=== PATIENT | male | born 1990 | race Caucasian/White ===

== ENCOUNTER 2017-02-08 16:35 | Observation (INO) | payer MEDICAID ==
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
[2017-02-08 16:54] LABS: % IMMATURE GRANULYOCYTES 1.2 % (0.0-1.1); ADD DIFF? NO; ADD MORPH? NO; ADD SCAN? NO; ATYPICAL LYMPHOCYTE FLAG 30 (0-99); FRAGMENT RBC FLAG 0 (0-99); HEMATOCRIT 44.6 % (40.0-51.0); HEMOGLOBIN 15.3 g/dL (13.7-17.5); LEFT SHIFT FLG 10 (0-99); LIPEMIA HEMOLYSIS FLAG 90 (0-99); MEAN CELL HEMOGLOBIN 29.9 pg (27.9-34.1); MEAN CELL HEMOGLOBIN CONCENTR. 34.3 g/dL (32.4-36.7); MEAN CELL VOLUME 87.3 fL (81.5-99.8); PLATELET CLUMPS FLAG 0 (0-99); PLATELET COUNT 238 10^3/uL (150-400); RED BLOOD CELL COUNT 5.11 10^6/uL (4.40-6.38); RED CELL DISTRIBUTION WIDTH 12.4 % (11.5-15.2)
[2017-02-08] MEDS ORDERED: IOPAMIDOL (ISOVUE-300) 100 ML BTL ONE (16:54)
[2017-02-08 17:06] LABS: INR 1.03 (0.83-1.16); PROTIME(PATIENT) 13.4 SEC (12.0-15.0)
[2017-02-08 17:07] LABS: APTT 24.3 SEC (23.0-38.0)
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
[2017-02-08 17:08] LABS: ANION GAP 14 mEq/L (8-16); CALCIUM 10.2 mg/dL (8.5-10.4); CARBON DIOXIDE 22 mEq/l (22-31); CHLORIDE 103 mEq/L (97-110); CREATININE 0.9 mg/dL (0.7-1.3); ETHANOL SERUM < 10 mg/dL (0-10); GLOMERULAR FILTRATION RATE > 60; GLUCOSE 103 mg/dL (70-100); SODIUM 139 mEq/L (134-144)
[2017-02-08] MEDS ORDERED: ONDANSETRON 4 MG/2 ML VIAL IVP PRN (17:21)
[2017-02-08] MEDS ORDERED: LR 1,000 ML IV SCH (17:30)
[2017-02-08] MEDS ORDERED: fentaNYL 100 MCG/2 ML INJ ONE ×2 (17:36→18:32)
[2017-02-08] MEDS ORDERED: fentaNYL 100 MCG/2 ML INJ IVP ONE ×2 (17:50→18:34)
[2017-02-08] MEDS: BACITRACIN ZINC 14.2 GM OINTTUBE TP SCH ×2 (19:31→21:32)
[2017-02-08] MEDS: OXYCODONE/APAP 5/325 TAB PO PRN (21:32)
[2017-02-08] MEDS: SENNOSIDES/DOCUSATE SODIUM TAB PO SCH (21:33)
[2017-02-09 03:30] VITALS: RESP 16
[2017-02-09] MEDS: NICOTINE 21 MG/24 HR PATCH TD SCH ×2 (04:10→08:28)
[2017-02-09] MEDS: OXYCODONE/APAP 5/325 TAB PO PRN ×3 (04:10→11:58)
[2017-02-09 05:15] LABS: HEMATOCRIT 37.6 % (40.0-51.0); HEMOGLOBIN 12.8 g/dL (13.7-17.5); MEAN CELL VOLUME 88.1 fL (81.5-99.8); RED BLOOD CELL COUNT 4.27 10^6/uL (4.40-6.38); RED CELL DISTRIBUTION WIDTH 12.7 % (11.5-15.2)
[2017-02-09 05:29] LABS: ANION GAP 9 mEq/L (8-16); CALCIUM 9.1 mg/dL (8.5-10.4); CARBON DIOXIDE 23 mEq/l (22-31); CHLORIDE 105 mEq/L (97-110); CREATININE 0.7 mg/dL (0.7-1.3); GLOMERULAR FILTRATION RATE > 60; GLUCOSE 88 mg/dL (70-100); POTASSIUM 4.1 mEq/L (3.5-5.2); SODIUM 137 mEq/L (134-144)
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
[2017-02-09] MEDS: SENNOSIDES/DOCUSATE SODIUM TAB PO SCH (08:28)
[2017-02-09] MEDS: BACITRACIN ZINC 14.2 GM OINTTUBE TP SCH (08:30)
[2017-02-09 12:18] VITALS: BP 111/69; PULSE 82; TEMP 98.5; O2SAT 97
== END 2017-02-09 13:05 | disposition home or self-care (01) ==
LOC: EDUNIT# → F3N 20:37
PROVIDERS: ADMIT Surgery; ATTEND Surgery
PROC: 0HQ1XZZ Repair Face Skin, External Approach (ICD-10-PCS; principal; 2017-02-08)
PROC: 0HQ0XZZ Repair Scalp Skin, External Approach (ICD-10-PCS; principal; 2017-02-08)
DX: S06.0X9A Concussion with loss of consciousness of unspecified duration, initial encounter (principal); S01.81XA Laceration without foreign body of other part of head, initial encounter; S01.02XA Laceration with foreign body of scalp, initial encounter; S32.414A Nondisplaced fracture of anterior wall of right acetabulum, initial encounter for closed fracture; S32.501A Unspecified fracture of right pubis, initial encounter for closed fracture; S70.211A Abrasion, right hip, initial encounter; S80.811A Abrasion, right lower leg, initial encounter; S70.311A Abrasion, right thigh, initial encounter; Y93.51 Activity, roller skating (inline) and skateboarding; V03.92XA Pedestrian on skateboard injured in collision with car, pick-up truck or van, unspecified whether traffic or nontraffic accident, initial encounter; Y92.414 Local residential or business street as the place of occurrence of the external cause; F12.90 Cannabis use, unspecified, uncomplicated; F17.210 Nicotine dependence, cigarettes, uncomplicated
CPT/HCPCS: 82947-QW; 97161-GP; 97165-GO; G0480; J3010; Q9967